=== PATIENT | male | born 1970 | race Caucasian/White ===

== ENCOUNTER 2019-06-05 13:41 | Emergency (ER) | payer SELFPAY ==
[2019-06-05] MEDS ORDERED: DIPH/PERTUSS(ACELL)/TETANUS VAC/PF 0.5 ML SYR (>=10YO) IM ONE (14:39)
--- NOTE | 2019-06-05 14:39 | ER Document Report ---
ED Medical Screen (RME) - General Chief Complaint: Arm Injury Stated Complaint: LEFT ARM INJURY Time Seen by Provider: 06/05/19 14:37 Primary Care Provider: NITISH BAJWA [Primary Care Provider] - Follow up as needed Mode of Arrival: Ambulatory Information source: Patient Notes: 48-year-old male presented to ED for laceration to the left forearm. He states he cut it on a metal savanah today and it is a wedge cut. Patient is alert and oriented respirations regular and unlabored speaking in full sentences. He will get his tetanus shot done while in the pit area that he will be seen by another provider. Physical Exam - Vital signs Vitals: Temp Pulse Resp BP Pulse Ox 98.3 F 72 18 133/86 H 97 06/05/19 14:25 06/05/19 14:25 06/05/19 14:25 06/05/19 14:25 06/05/19 14:25 Course - Vital Signs Vital signs: Temp Pulse Resp BP Pulse Ox 98.3 F 72 18 133/86 H 97 06/05/19 14:25 06/05/19 14:25 06/05/19 14:25 06/05/19 14:25 06/05/19 14:25 Doctor's Discharge - Discharge Referrals: NITISH BAJWA [Primary Care Provider] - Follow up as needed
[2019-06-05] MEDS ORDERED: IBUPROFEN 800 MG TABLET PO ONE (14:40)
--- NOTE | 2019-06-05 15:18 | RADIOLOGY REPORT (SQ) ---
EXAM DESCRIPTION: FOREARM LEFT COMPLETED DATE/TIME: 06/05/2019 3:01 pm REASON FOR STUDY: laceration with metal COMPARISON: None. NUMBER OF VIEWS: Two views. TECHNIQUE: Two radiographic images acquired of the left forearm, including elbow and wrist in at fior st one projection. LIMITATIONS: None. FINDINGS: MINERALIZATION: Normal. BONES: No acute fracture. No worrisome bone lesions. SOFT TISSUES: Mild soft tissue irregularity secondary to trauma. No radiopaque foreign body. OTHER: No other significant finding. IMPRESSION: SOFT TISSUE INJURY. NO RADIOPAQUE FOREIGN BODY. NO BONY FINDINGS. TECHNICAL DOCUMENTATION: JOB ID: [id number] [employer]- All Rights Reserved Reading location - IP/workstation name: [email or web address]
[2019-06-05] MEDS ORDERED: LIDOCAINE 1%/EPINEPHRINE INJ 20 ML VIAL INJ ONE (16:41)
--- NOTE | 2019-06-05 16:42 | ER Document Report ---
HPI - HPI Patient complains to provider of: Left forearm laceration Time Seen by Provider: 06/05/19 14:37 Onset: This afternoon Onset/Duration: Sudden Quality of pain: Achy Pain Level: 2 Context: Patient was replacing a barn roof. Patient states that he turned and cut his arm on a piece of the sharp metal. Patient's tetanus immunization is currently up-to-date. Patient denies taking any anticoagulants. Associated Symptoms: Other - Left forearm laceration Exacerbated by: Movement Relieved by: Denies Similar symptoms previously: No Recently seen / treated by doctor: No - ROS ROS below otherwise negative: Yes Systems Reviewed and Negative: Yes All other systems reviewed and negative - GASTROINTESTINAL Gastrointestinal: DENIES: Nausea - MUSCULOSKELETAL Musculoskeletal: REPORTS: Extremity pain - DERM Skin Problems: Laceration Past Medical History - General Information source: Patient - Social History Smoking Status: Former Smoker Chew tobacco use (# tins/day): No Frequency of alcohol use: Occasional Drug Abuse: None Occupation: Home improvement Lives with: Family Family History: Reviewed & Not Pertinent Patient has suicidal ideation: No Patient has homicidal ideation: No - Medical History Medical History: Negative Past Surgical History: Reports: Other - Cystic tumor removed Vertical Provider Document - CONSTITUTIONAL Agree With Documented VS: Yes Exam Limitations: No Limitations General Appearance: WD/WN, No Apparent Distress - INFECTION CONTROL TRAVEL OUTSIDE OF THE [place] IN LAST 30 DAYS: No - HEENT HEENT: Atraumatic, Normocephalic - NECK Neck: Normal Inspection - RESPIRATORY Respiratory: Breath Sounds Normal, No Respiratory Distress - CARDIOVASCULAR Cardiovascular: Regular Rate, Regular Rhythm Pulses: Normal: Radial - MUSCULOSKELETAL/EXTREMETIES Musculoskeletal/Extremeties: MAEW, FROM - NEURO Level of Consciousness: Awake, Alert, Appropriate Motor/Sensory: No Motor Deficit - DERM Integumentary: Warm, Dry, Laceration - 9.5 cm flap laceration to the volar aspect of left forearm, no active bleeding Course - Vital Signs Vital signs: Temp Pulse Resp BP Pulse Ox 98.3 F 72 18 133/86 H 97 06/05/19 14:25 06/05/19 14:25 06/05/19 14:25 06/05/19 14:25 06/05/19 14:25 - Diagnostic Test Radiology reviewed: Image reviewed, Reports reviewed Procedures - Laceration/Wound Repair Left Arm Wound length (cm): 9.5 Wound's Depth, Shape: Irregular, Flap Anesthetic type: 1% Lidocaine w/epi Volume Anesthetic (mLs): 4 Wound explored: Clean Wound Repaired With: Sutures Suture Size/Type: 4:0, Nylon Number of Sutures: 20 Post-procedure NV exam normal: Yes Complications: No Discharge - Discharge Clinical Impression: Laceration of left forearm Qualifiers: Encounter type: initial encounter Qualified Code(s): S51.812A - Laceration without foreign body of left forearm, initial encounter Condition: Stable Disposition: HOME, SELF-CARE Instructions: Laceration Care ([facility]) Additional Instructions: Return immediately for any new or worsening symptoms Followup with your primary care provider, call tomorrow to make a followup appointment Suture removal in 10 days Return for any signs of infection such as redness, swelling, fever or purulent drainage. Return immediately for any complications.
[2019-06-05 20:20] VITALS: BP 127/79
== END 2019-06-05 20:19 | disposition home or self-care (01) ==
LOC: ER 13:41
DX: S51.812A Laceration without foreign body of left forearm, initial encounter (principal); W26.9XXA Contact with unspecified sharp object(s), initial encounter; Z23 Encounter for immunization
CPT/HCPCS: 73090; 90715; 12004; J3490